=== PATIENT | male | born 1960 | race Caucasian/White ===

== ENCOUNTER → 2016-08-31 | Outpatient (CLI) | payer BC, OTHER ==
--- NOTE | 2016-08-31 12:09 | DI ---
RIGHT SHOULDER, 08/31/2016 10:21 AM: Clinical History: Right shoulder pain. Previous Exam: 04/08/2015. 3 views are submitted. 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 There is a calcific density in the region of the greater tuberosity consistent with calcific te ndinitis probably in the supraspinatus tendon. Since the last exam, a 10 mm lytic lesion has develope d in the proximal third of the humerus cortex. This was not present on the prior exam and is suspicio us for a metastatic lesion. The visualized portions of the right lung in the right apex are normal. Readin. Interval development of a lytic lesion measuring roughly 10 mm in the cortex of the proximal thir d of the right humerus. This is suspicious for metastatic disease. 2. There has been progressive narrowing of the glenohumeral joint space. There has been no change in the calcific density in the soft tissues in proximity to the greater tuberosity. This is consistent with calcific tendinitis involving the supraspinatus tendon.
== END ==
LOC: ORTHO 10:24
PROVIDERS: ATTEND Orthopaedic Surgery
DX: M25.511 Pain in right shoulder (principal); M19.011 Primary osteoarthritis, right shoulder; M75.31 Calcific tendinitis of right shoulder
CPT/HCPCS: 73030

== ENCOUNTER → 2016-11-16 | Outpatient (CLI) | payer BC, OTHER ==
--- NOTE | 2016-11-16 09:54 | DI ---
PA /LATERAL CHEST X-RAY, 11/16/2016 9:29 AM : Clinical History: Acute pneumothorax. Previous Exam: None at this facility. There are acute rib fractures of the right sixth and seventh ribs laterally. No subcutaneous air is p resent. Heart size is normal. There is no right-sided pneumothorax. There is blunting of the right co stophrenic angle. No infiltrate is noted on either side. Mediastinal structures are normal. There are no pulmonary nodules. Readin. There are acute right lateral rib fractures involving the sixth and seventh ribs without evidence of a pneumothorax. A small pleural effusion is present. 2. The remainder of the exam is normal
== END ==
LOC: RAD 09:12
PROVIDERS: ATTEND Internal Medicine
DX: J93.83 Other pneumothorax (principal); S22.41XA Multiple fractures of ribs, right side, initial encounter for closed fracture; J90 Pleural effusion, not elsewhere classified; V29.9XXA Motorcycle rider (driver) (passenger) injured in unspecified traffic accident, initial encounter
CPT/HCPCS: 71020